=== PATIENT | male | born 1955 | race Caucasian/White ===

== ENCOUNTER 2018-11-18 14:05 | Outpatient (CLI) | payer OTHER | END 2018-11-18 14:30 | disposition home or self-care (01) | LOC: SLEEP 14:05 | PROVIDERS: ATTEND Otolaryngology Otolaryngology/Facial Plastic Surgery | DX: G47.33 Obstructive sleep apnea (adult) (pediatric) (principal) ==

== ENCOUNTER → 2019-12-01 | Outpatient (CLI) | payer OTHER ==
[2019-12-01 08:28] LABS: ALANINE AMINOTRANSFERASE 23 U/L (0-55); ALBUMIN 4.2 GM/DL (3.2-4.5); ALKALINE PHOSPHATASE 84 U/L (40-136); BILIRUBIN,TOTAL 0.6 MG/DL (0.1-1.0); BUN/CREATININE RATIO 25; CALCIUM 9.1 MG/DL (8.5-10.1); CARBON DIOXIDE 22 MMOL/L (21-32); CHLORIDE 105 MMOL/L (98-107); CREATININE SERUM 0.87 MG/DL (0.60-1.30); GFR ESTIMATED > 60; GLUCOSE 108 MG/DL (70-105); POTASSIUM 4.1 MMOL/L (3.6-5.0); SODIUM 138 MMOL/L (135-145); TOTAL PROTEIN 6.8 GM/DL (6.4-8.2)
[2019-12-01 15:14] LABS: TRIGLYCERIDES 88 MG/DL (<150); VLDL CHOLESTEROL 18 MG/DL (5-40)
[2019-12-01 15:19] LABS: CHOLESTEROL 169 MG/DL (< 200); HDL CHOLESTEROL 45 MG/DL (40-60)
== END ==
LOC: LAB FS 07:33
PROVIDERS: ATTEND Family Medicine
DX: Z00.00 Encounter for general adult medical examination without abnormal findings (principal); Z12.5 Encounter for screening for malignant neoplasm of prostate; Z86.39 Personal history of other endocrine, nutritional and metabolic disease
CPT/HCPCS: 36415; 80053; 80061; 83036; 84153